=== PATIENT | male | born 1970 | race Two or more races ===

== ENCOUNTER 2016-11-13 12:02 | Emergency (ER) | payer MEDICAID ==
[~2016-11-13] VITALS: Ht 167.6 cm; Wt 86.2 kg
[~2016-11-13 12:02] MED LIST: METF100097; TEGRETOL; TEMAZEPAM
[2016-11-13 13:06] VITALS: BP 158/96
[2016-11-13] MEDS ORDERED: KETOROLAC TROMETH 60MG/2ML VIAL IM ONE (13:30)
== END 2016-11-13 13:55 | disposition home or self-care (01) ==
LOC: ER 12:02
DX: J02.9 Acute pharyngitis, unspecified (principal); R51 Headache; R53.1 Weakness; E11.9 Type 2 diabetes mellitus without complications
CPT/HCPCS: 96372; 99283; J1885

== ENCOUNTER 2016-12-17 08:35 | Emergency (ER) | payer MEDICAID ==
[~2016-12-17] VITALS: Ht 167.6 cm; Wt 95.3 kg
[2016-12-17 11:34] VITALS: BP 131/95
== END 2016-12-17 11:54 | disposition home or self-care (01) ==
LOC: ER 08:35
DX: M77.11 Lateral epicondylitis, right elbow (principal); E11.9 Type 2 diabetes mellitus without complications
CPT/HCPCS: 73080

== ENCOUNTER 2022-02-17 05:15 | Emergency (ER) | payer MEDICAID ==
[~2022-02-17] VITALS: Ht 167.6 cm; Wt 86.2 kg
[2022-02-17 07:29] LABS: Urine Bacteria NONE SEEN /hpf (None Seen); Urine Blood Negative /uL (Negative); Urine Specific Gravity 1.016 (1.001-1.035); Urine WBC 11 /hpf (0 - 3)
[2022-02-17 07:36] VITALS: BP 118/68
[2022-02-17] MEDS ORDERED: INDO50CA82 PO (08:14)
[2022-02-17] MEDS ORDERED: DOXY-286 PO (08:14)
== END 2022-02-17 08:34 | disposition home or self-care (01) ==
LOC: ER 05:15
DX: N45.1 Epididymitis (principal); E11.9 Type 2 diabetes mellitus without complications; Z79.899 Other long term (current) drug therapy
CPT/HCPCS: 76870; 81001